=== PATIENT | female | born 1965 | race African-American/Black ===

== ENCOUNTER 2022-12-23 10:31 | Emergency (ER) | payer OTHER ==
[~2022-12-23] VITALS: Ht 170.2 cm; Wt 102.0 kg
[2022-12-23] MEDS ORDERED: SODIUM CHLORIDE 0.9% 1,000 ML IV ONE (11:00)
[2022-12-23 11:45] LABS: BASOPHILS % 0.6 % (0.0-2.0); CHLORIDE 99 mEq/L (98-107); EOSINOPHILS % 0.6 % (0.0-5.0); HEMATOCRIT. 45.7 % (36.0-48.0); HEMOGLOBIN. 15.6 g/dL (12.0-16.0); LYMPHOCYTES % 35.8 % (20.0-50.0); MEAN CORPUSCULAR HEMOGLOBIN 28.2 pg (28.0-32.0); MEAN CORPUSCULAR VOLUME 82.5 fL (81.0-99.0); MEAN PLATELET VOLUME 9.5 fl (7.4-10.4); PLATELET 229 x1000/uL (130-400); RED BLOOD CELL COUNT 5.54 mill/uL (4.2-5.4); RED CELL DISTRIBUTION WIDTH 14.7 % (11.6-14.6)
[2022-12-23 12:10] LABS: BETA HYDROXYBUTYRATE 0.2 mMol/L (0.0-0.3)
[2022-12-23] MEDS ORDERED: INSULIN REGULAR (HUMULIN R) 300UNITS/3ML VIAL IV ONE (12:15)
[2022-12-23] MEDS ORDERED: INSULIN REGULAR (HUMULIN R) 300UNITS/3ML VIAL SUBCUT ONE (12:45)
[2022-12-23 13:12] VITALS: BP 137/84
== END 2022-12-23 13:12 | disposition home or self-care (01) ==
LOC: ER 10:31
DX: E11.65 Type 2 diabetes mellitus with hyperglycemia (principal); R06.02 Shortness of breath; Z88.0 Allergy status to penicillin
CPT/HCPCS: 36415; 80053; 82010; 84484; 85025; 93005; 96360; 96372; 99284; J1815; J7030

== ENCOUNTER 2023-01-21 09:23 | Inpatient (IN) | payer BC, OTHER ==
[~2023-01-21] VITALS: Ht 170.2 cm; Wt 97.1 kg
[2023-01-21] MEDS ORDERED: metformin (09:25)
[2023-01-21 09:26] VITALS: O2SAT 100
[2023-01-21] MEDS ORDERED: SODIUM CHLORIDE 0.9% 1,000 ML IV ONE (10:00)
[2023-01-21 11:32] LABS: BASOPHILS % 0.8 % (0.0-2.0); EOSINOPHILS % 0.8 % (0.0-5.0); HEMATOCRIT. 40.8 % (36.0-48.0); HEMOGLOBIN. 13.8 g/dL (12.0-16.0); LYMPHOCYTES % 32.1 % (20.0-50.0); MEAN CORPUSCULAR HEMOGLOBIN 27.7 pg (28.0-32.0); MEAN CORPUSCULAR VOLUME 81.9 fL (81.0-99.0); MEAN PLATELET VOLUME 9.2 fl (7.4-10.4); MONOCYTES % 5.7 % (2.0-8.0); NEUTROPHILS % 60.6 % (40.0-76.0); PLATELET 210 x1000/uL (130-400); RED BLOOD CELL COUNT 4.98 mill/uL (4.2-5.4); RED CELL DISTRIBUTION WIDTH 14.4 % (11.6-14.6)
[2023-01-21 11:40] LABS: HCG SCREEN NEGATIVE
[2023-01-21 11:43] LABS: INR 1.1; PROTHROMBIN TIME 12.2 sec (9.6-11.0)
[2023-01-21 12:12] LABS: CHLORIDE 104 mEq/L (98-107)
[2023-01-21 12:31] LABS: BETA HYDROXYBUTYRATE 0.2 mMol/L (0.0-0.3); CREATINE KINASE 82 IU/L (26-192); ETHANOL BLOOD < 10 mg/dL (-10)
[2023-01-21 14:30] VITALS: BP 119/69; PULSE 18; PULSE 73; PULSE 88; RESP 18; TEMP 97.7
[2023-01-21] MEDS ORDERED: ONDANSETRON HCL 4MG/2ML INJ IV PRN (15:00)
[2023-01-21] MEDS ORDERED: INSULIN GLARGINE 100 UNITS/ML SUBCUT SCH (15:00)
[2023-01-21] MEDS ORDERED: DEXTROSE 50% WATER 50ML SYRINGE IV PRN (15:00)
[2023-01-21] MEDS ORDERED: ACETAMINOPHEN 325MG TABLET PO PRN (15:00)
[2023-01-21 16:00] VITALS: PULSE 95; RESP 18
[2023-01-21] MEDS: BLOOD SUGAR DIAGNOSTIC STRIP TEST SCH ×2 (16:51→21:00)
[2023-01-21] MEDS: INSULIN LISPRO 100 UNITS/ML SUBCUT SCH ×3 (17:16→21:42)
[2023-01-21 20:00] VITALS: BP 107/62; PULSE 87; RESP 19; TEMP 97.6
[2023-01-21 20:12] LABS: CLARITY URINE CLEAR (CLEAR); COLOR URINE YELLOW (YELLOW); KETONES URINE NEGATIVE (NEGATIVE); LEUKOCYTE ESTERASE URINE NEGATIVE (NEGATIVE); NITRITE URINE NEGATIVE (NEGATIVE); OCCULT BLOOD URINE NEGATIVE (NEGATIVE); PH URINE 6.5 (4.5-8.0); PROTEIN URINE NEGATIVE (NEGATIVE); SPECIFIC GRAVITY URINE 1.023 (1.005-1.030)
[2023-01-21 20:24] LABS: *AMPHETAMINES SCREEN URINE NEGATIVE (NEGATIVE); *BARBITURATES SCREEN URINE NEGATIVE (NEGATIVE); *BENZODIAZEPINES SCREEN URINE NEGATIVE (NEGATIVE); *COCAINE SCREEN URINE NEGATIVE (NEGATIVE); CANNABINOID URINE SCREEN NEGATIVE (NEGATIVE); METHADONE URINE SCREEN NEGATIVE (NEGATIVE); OPIATES URINE SCREEN NEGATIVE (NEGATIVE); PHENCYCLIDINE URINE SCREEN NEGATIVE (NEGATIVE)
[2023-01-21] MEDS: INSULIN GLARGINE 100 UNITS/ML SUBCUT SCH ×2 (21:40→21:41)
== END 2023-01-21 22:00 | disposition left against medical advice (07) | DRG 639 ==
LOC: ER 09:23 → EDBEDREQTM 12:04 → EDBEDREQ 12:04 → 7WST 14:26
PROVIDERS: ADMIT Internal Medicine; ATTEND Internal Medicine
DX: E11.65 Type 2 diabetes mellitus with hyperglycemia (principal); F17.200 Nicotine dependence, unspecified, uncomplicated; Z20.822 Contact with and (suspected) exposure to COVID-19; Z53.29 Procedure and treatment not carried out because of patient's decision for other reasons; Z79.84 Long term (current) use of oral hypoglycemic drugs
CPT/HCPCS: 36415; 71045; 74176; 80053; 80305; 80320; 81003; 82010; 82550; 82803; 82962; 83605; 84145; 84484; 84703; 85025; 87426; 93005; 99285; J1815; J7030; G0480

== ENCOUNTER 2024-08-04 13:24 | Emergency (ER) | payer BC ==
[~2024-08-04] VITALS: Ht 165.1 cm; Wt 70.0 kg
[~2024-08-04 13:24] MED LIST: metformin
[2024-08-04 13:29] VITALS: BP 114/74; PULSE 70; RESP 18; TEMP 98.4; O2SAT 98
[2024-08-04] MEDS ORDERED: ACETAMINOPHEN 325MG TABLET PO ONE (13:45)
== END 2024-08-04 16:08 | disposition left against medical advice (07) ==
LOC: ER 13:32
DX: M79.602 Pain in left arm (principal); E11.65 Type 2 diabetes mellitus with hyperglycemia; Z88.0 Allergy status to penicillin; Z90.49 Acquired absence of other specified parts of digestive tract
CPT/HCPCS: 93005; 99283